=== PATIENT | female | born 1975 | race Two or more races ===

== ENCOUNTER → 2020-02-26 | Outpatient (CLI) | payer OTHER ==
--- NOTE | 2020-02-26 18:01 | RAD ---
ADDENDUM #1 Addendum: Pathology results from the fine-needle biopsy of the right thyroid lobe nodule is negative for malign ant cells with a pattern consistent with an adenomatoid nodule. Caution was raised in the pathology report that the sample is a small portion of a larger lesion and may not be entirely arborist representative. Recommend clinical follow-up. Electronically signed by: Luis Armando Valle MD (03/05/2020 4:31 PM) [id number] ORIGINAL REPORT EXAM: ULTRASOUND-GUIDED THYROID FINE-NEEDLE ASPIRATION. HISTORY: Thyroid nodule. Ultrasound-guided biopsy is requested. FINDINGS: The procedure along with its risks and benefits were explained to the patient. They agreed to proceed. A timeout procedure was performed. Sonographic images of the thyroid gland were obtained. The 2.3 cm solid target nodule in the right th yroid lobe was adequately visualized for biopsy. The overlying skin was sterilely prepped and infiltrated with 1% lidocaine for local anesthesia. Unde r ultrasound guidance, 4 aspirates were obtained using 25-gauge needles. These were hand delivered to pathology who determined them adequate for diagnosis. A sterile dressing was placed. There were no i mmediate complications. IMPRESSION: 1. Successful ultrasound-guided fine-needle aspiration of the right thyroid nodule. Electronically signed by: Luis Armando Valle MD (02/26/2020 5:59 PM) [id number]
--- NOTE | 2020-02-28 12:09 | PATHOLOGY ---
Note [facility] Accession Number: [id number] TESTS RESULT FLAG UNITS REF RANGE LAB Clinician Provided Cytology Information No. of containers..01 Other (Miscellaneous) Source: RT THYROID NDOULE DIAGNOSIS: RT THYROID NDOULE NEGATIVE FOR MALIGNANT CELLS. BETHESDA CATEGORY II. SPECIMEN CONSISTS OF ABUNDANT BENIGN FOLLICULAR CELLS, HEMOSIDERIN-LADEN MACROPHAGES, SCANT COLLOID AND BLOOD. THE PATTERN IS CONSISTENT WITH ADENOMATOID NODULE. COLLOID IS PRESENT. RED BLOOD CELLS ARE PRESENT. THIS INTERPRETATION INCLUDES EVALUATION OF A CELL BLOCK. THYROID FOLLICULAR CELLS IN PREDOMINANTLY MACROFOLLICULAR ARCHITECTURE WITH BACKGROUND SCANT COLLOID, MACROPHAGES AND BLOOD. NO CLASSIC CYTOLOGICAL FEATURES OF PAPILLARY CARCINOMA ARE SEEN. OF NOTE, THIS IS A SMALL PORTION OF A LARGER LESION AND MAY NOT BE ENTIRELY CONTRACT ACCOUNTANT. CLINICAL AND RADIOGRAPHIC CORRELATION IS REQUIRED. THE CASE IS CO-REVIEWED WITH DR. BART AHMADI. Pathologist ICD10: 02 E04.1 Signed out by: Erin Snider MD, Pathologist NPI- [id number] Performed by: Fanny Mcclellan, Women'S Studies Professor ([facility]) Gross description: 01 30ML, CLEAR RED, 2FX 2AD 2H /LCS 02/26/2020 1627 Local FLAG LEGEND: L-Low Normal,H-High Normal,LL-Alert Low,HH-Alert High <-Panic Low,>-Panic High,A-Abnormal,AA-Critical Abnormal Performed at: [facility] [address] [place] [address] Zeferino Marrero MD, [address] [facility] [place] [address] [place] [address] Yazan Fox MD, Specimen Comment: A courtesy copy of this report has been sent to [phone] Specimen Comment: [id number] Specimen Comment: Report sent to Performed at: 01 [facility] [place] [address] [facility] [address], [place] [id number] MD Zeferino Marrero MD Phone: [phone]
== END | disposition home or self-care (01) ==
LOC: US 08:04
PROVIDERS: ATTEND Nurse Practitioner Adult Health
DX: E04.1 Nontoxic single thyroid nodule (principal); K42.9 Umbilical hernia without obstruction or gangrene; R19.8 Other specified symptoms and signs involving the digestive system and abdomen; D34 Benign neoplasm of thyroid gland
CPT/HCPCS: 10005; 60300; 76942; 88173; 88305